=== PATIENT | female | born 1970 | race Caucasian/White ===

== ENCOUNTER 2022-01-14 10:00 | Outpatient (CLI) | payer MEDICAID | END 2022-01-14 11:00 | disposition home or self-care (01) | LOC: SLB 10:00 → EDSTATUS 01-16 10:45 | PROVIDERS: ATTEND Internal Medicine Gastroenterology | DX: Z20.822 Contact with and (suspected) exposure to COVID-19 (principal) | CPT/HCPCS: 36415; U0003 ==